=== PATIENT | female | born 1975 ===

== ENCOUNTER 2023-06-11 06:15 | Day surgery (SDC) | payer OTHER, SELFPAY ==
[2023-06-11] VITALS (11 sets, daily range): BP systolic 113–136; BP diastolic 66–86; BMI 28.9
[2023-06-11] MEDS: Pyridium 200 MG PO (07:12)
[2023-06-11] MEDS: NORMOSOL-R 1000 IV (07:12)
[2023-06-11] MEDS: MOTRIN 600 MG PO (10:00)
[2023-06-11] MEDS: ROXICODONE 5 MG PO (10:51)
== END 2023-06-11 12:00 | disposition home or self-care (01) ==
LOC: SDS 06:15
PROVIDERS: ATTENDING PHYSICIAN Obstetrics & Gynecology
DX: N39.3 Stress incontinence (female) (male) (principal); N89.8 Other specified noninflammatory disorders of vagina
CPT/HCPCS: 57288; 57135; 88304; C1771